=== PATIENT | male | born 1950 | race Caucasian/White ===

== ENCOUNTER → 2017-02-03 | Outpatient (CLI) | payer BC ==
[~2017-02-03] MED LIST: ASPIR 8181 MG PO; AZOR 5-20 MG T1 EACH PO; BETAMETHASONE D50 G2 TOP; CLARITIN10 MG PO; MIRALAX17 G1 PO; PROBIOTIC1 EAC1 PO; QNASL8.7 GM NASAL; VASCEPA1 GM PO; VYTORIN 10-101 EACH PO
== END ==
LOC: CAT 09:18
DX: R91.1 Solitary pulmonary nodule (principal)

== ENCOUNTER → 2018-02-23 | Outpatient (CLI) | payer BC, OTHER | LOC: CAT 13:44 | DX: R91.8 Other nonspecific abnormal finding of lung field (principal); I25.10 Atherosclerotic heart disease of native coronary artery without angina pectoris; J98.11 Atelectasis ==

== ENCOUNTER → 2020-09-11 | Outpatient (CLI) | payer OTHER | LOC: CAT 16:27 | PROVIDERS: ATTEND Internal Medicine Cardiovascular Disease | DX: Z13.6 Encounter for screening for cardiovascular disorders (principal); I25.10 Atherosclerotic heart disease of native coronary artery without angina pectoris; E78.00 Pure hypercholesterolemia, unspecified ==

== ENCOUNTER → 2020-11-02 | Outpatient (CLI) | payer BC, OTHER | LOC: SJCVCIMAG 08:24 | PROVIDERS: ATTEND Internal Medicine Cardiovascular Disease | DX: I08.2 Rheumatic disorders of both aortic and tricuspid valves (principal); I11.9 Hypertensive heart disease without heart failure; R00.1 Bradycardia, unspecified; E78.5 Hyperlipidemia, unspecified; Z79.899 Other long term (current) drug therapy ==